=== PATIENT | female | born 1950 | race Caucasian/White ===

== ENCOUNTER 2020-09-09 09:56 | Emergency (ER) | payer MEDICARE ==
[2020-09-09] MEDS ORDERED: NS IV 1000 ML 1,000 ML ONE (10:13)
[2020-09-09 10:26] LABS: HEMATOCRIT 47 % (35-52); HEMOGLOBIN 15.1 G/DL (11.5-16.0); MEAN CORPUSCULAR HEMOGLOBIN 29 PG (25-34); MEAN CORPUSCULAR HGB CONC 32 G/DL (32-36); MEAN CORPUSCULAR VOLUME 92 FL (80-99); PLATELET COUNT 296 10^3/uL (130-400); WHITE BLOOD COUNT 16.1 10^3/uL (4.3-11.0)
[2020-09-09 10:27] LABS: BASOPHILS % (AUTO) 0 % (0-10); EOSINOPHILS % (AUTO) 0 % (0-10); LYMPHOCYTES # (AUTO) 1.8 X 10^3 (1.0-4.0); LYMPHOCYTES % (AUTO) 11 % (12-44); MEAN PLATELET VOLUME 12.1 FL (7.4-10.4); MONOCYTES # (AUTO) 0.9 X 10^3 (0.0-1.0); MONOCYTES % (AUTO) 5 % (0-12); NEUTROPHILS # (AUTO) 13.4 X 10^3 (1.8-7.8); NEUTROPHILS % (AUTO) 83 % (42-75)
[2020-09-09 10:35] LABS: INR 0.9 (0.8-1.4); PROTHROMBIN TIME PATIENT 12.6 SEC (12.2-14.7)
[2020-09-09 10:42] LABS: ALANINE AMINOTRANSFERASE 18 U/L (0-55); ALKALINE PHOSPHATASE 99 U/L (40-136); BILIRUBIN,TOTAL 0.3 MG/DL (0.1-1.0); BUN/CREATININE RATIO 16; CALCIUM 9.4 MG/DL (8.5-10.1); CARBON DIOXIDE 24 MMOL/L (21-32); CHLORIDE 99 MMOL/L (98-107); CREATININE SERUM 0.64 MG/DL (0.60-1.30); GFR ESTIMATED > 60; GLUCOSE 133 MG/DL (70-105); POTASSIUM 4.3 MMOL/L (3.6-5.0); SODIUM 137 MMOL/L (135-145); TOTAL PROTEIN 7.4 GM/DL (6.4-8.2)
[2020-09-09 10:43] LABS: ALBUMIN 4.6 GM/DL (3.2-4.5); BAND NEUTROPHILS 4 %; BASOPHILS % (MANUAL) 0 %; EOSINOPHILS % (MANUAL) 0 %; LYMPHOCYTES % (MANUAL) 14 %; MONOCYTES % (MANUAL) 3 %; NEUTROPHILS % (MANUAL) 79 %
--- NOTE | 2020-09-09 10:45 | NUR ---
10:20: Patient given 5 mg versed, 60 mg rocuronium. 10:43: Patient intubated with a 7.[address] Viveros, 25 cm at lip. Equal breath sounds bilaterally, positive color change on ETCO2 detector.
[2020-09-09] MEDS ORDERED: fentaNYL INJECTION 100 MCG/2 ML AMP ONE (10:53)
[2020-09-09] MEDS ORDERED: fentaNYL INJECTION 100 MCG/2 ML AMP IVP STA (11:03)
[2020-09-09] MEDS ORDERED: MIDAZOLAM 5 MG/5 ML (VERSED) VIAL IVP STA (11:03)
--- NOTE | 2020-09-09 11:06 | ED General ---
General Source of Information: EMS, Spouse Exam Limitations: Physical Impairments (pt unresponsive) History of Present Illness Date Seen by Provider: Sep 09, 2020 Time Seen by Provider: 09:56 Initial Comments 70-year-old female brought in by EMS after being found unresponsive by her this morning. She was last known normal at 2300 last night when he went to bed. She was sitting up in a chair and had some blood coming out of her mouth this morning. She was unresponsive even to painful stimuli. she has no past medical problems was then reflux according to her . She has been healthy and was not having any complaints yesterday. She has no fever or chills. She had not been coughing or having any respiratory problems. She was not complaining of any headache or vision changes. She had no chest pains. When he woke up this am she was sitting in chair and was unresponsive and he could not get her to wake up for him. That is when he had called EMS. Allergies and Home Medications Allergies Coded Allergies: shrimp (Verified Allergy, Unknown, 09/09/20) Patient Home Medication List Home Medication List Reviewed: Yes Review of Systems Review of Systems Constitutional: see HPI; No chills, No fever EENTM: No nose congestion Respiratory: No cough, No short of breath unable to obtain full review of systems due to patient being unresponsive Past Lbwcxhp-Qebjxa-Dnjqhk Hx Past Med/Social Hx: Reviewed Nursing Past Med/Soc Hx Past Medical History Respiratory: No Cardiac: No Neurological: No Reproductive Disorders: No Genitourinary: No Gastrointestinal: Yes Gastroesophageal Reflux Musculoskeletal: No HEENT: Yes Glaucoma Physical Exam Vital Signs Vital Signs - First Documented 09/09/20 10:00 Temp 36.2 Pulse 62 Resp 20 B/P (MAP) 176/85 (115) Pulse Ox 95 O2 Delivery Non Rebreather Capillary Refill : Height, Weight, BMI Height: '" Weight: lbs. oz. kg; BMI Method: General Appearance: Obese, Other (unresponsive) HEENT: Other (pupils 2 mm equal bilaterally with minimal responsiveness to light. blood and mucus in mouth) Neck: Supple Respiratory: Chest Non Tender, Rales, Rhonci; No Stridor Cardiovascular: Normal Peripheral Pulses, Tachycardia Gastrointestinal: No Pulsatile Mass, Soft Extremity: Normal Capillary Refill, No Pedal Edema Neurologic/Psychiatric: No Alert, No Oriented x3; Other (patient moaning at times but not responding to painful stimuli and not opening her eyes on her own. she is moving her extremities on her own) Skin: Warm/Dry Focused Exam Lactate Level 09/09/20 10:05: Lactic Acid Level 2.88*H 09/09/20 12:10: Lactic Acid Level 2.64*H Lactic Acid Level Laboratory Tests Test 09/09/20 12:10 Lactic Acid Level 2.64 MMOL/L (0.50-2.00) *H Procedures/Interventions Reason for Intubation: protect airway Date of ETT Placement: Sep 09, 2020 Time of ETT Placement: 10:43 Intubation Method: orotracheal Tube Size: 7 Medications: Rocuronium, Versed Positive End Tide CO2: Yes Breath Sounds after Intubation: bilateral-equal Intubation Complications: oral-unsuccessful attempt, O2 saturation decreased Post Intubation Xray: Yes ETT above ritchie on first attempt at orotracheal intubation the cords were not visualized and an attempt was made. There were noted breath sounds and no color change noted on the CO2 detector. This tube was removed. Then trying to use the glidescope a 2nd attempt was made but still unable to visualize cords so the orotracheal method was attempted again without success. a 3rd attempt was made with Jaziel vision scope and this was successful in visualizing vocal cords and passing a 7-0 ETT through the cords and getting good color change on ETCO2 detector as well as equal breath sounds. on CXR the tip of ETT was above ritchie. Progress/Results/Core Measures Suspected Sepsis SIRS Temperature: Pulse: Respiratory Rate: Laboratory Tests 09/09/20 10:05: White Blood Count 16.1H Blood Pressure / Mean: 09/09/20 10:05: Lactic Acid Level 2.88*H 09/09/20 12:10: Lactic Acid Level 2.64*H Laboratory Tests 09/09/20 10:05: Creatinine 0.64, INR Comment 0.9, Platelet Count 296, Total Bilirubin 0.3 Results/Orders Lab Results Laboratory Tests Test 09/09/20 10:05 09/09/20 11:10 09/09/20 11:25 09/09/20 12:10 Range/Units White Blood Count 16.1 H 4.3-11.0 10^3/uL Red Blood Count 5.14 4.35-5.85 10^6/uL Hemoglobin 15.1 11.5-16.0 G/DL Hematocrit 47 35-52 % Mean Corpuscular Volume 92 80-99 FL Mean Corpuscular Hemoglobin 29 25-34 PG Mean Corpuscular Hemoglobin Concent 32 32-36 G/DL Red Cell Distribution Width 16.5 H 10.0-14.5 % Platelet Count 296 130-400 10^3/uL Mean Platelet Volume 12.1 H 7.4-10.4 FL Immature Granulocyte % (Auto) 0 % Neutrophils (%) (Auto) 83 H 42-75 % Lymphocytes (%) (Auto) 11 L 12-44 % Monocytes (%) (Auto) 5 0-12 % Eosinophils (%) (Auto) 0 0-10 % Basophils (%) (Auto) 0 0-10 % Neutrophils # (Auto) 13.4 H 1.8-7.8 X 10^3 Lymphocytes # (Auto) 1.8 1.0-4.0 X 10^3 Monocytes # (Auto) 0.9 0.0-1.0 X 10^3 Eosinophils # (Auto) 0.0 0.0-0.3 10^3/uL Basophils # (Auto) 0.0 0.0-0.1 10^3/uL Immature Granulocyte # (Auto) 0.1 0.0-0.1 10^3/uL Neutrophils % (Manual) 79 % Lymphocytes % (Manual) 14 % Monocytes % (Manual) 3 % Eosinophils % (Manual) 0 % Basophils % (Manual) 0 % Band Neutrophils 4 % Prothrombin Time 12.6 12.2-14.7 SEC INR Comment 0.9 0.8-1.4 Activated Partial Thromboplast Time 23 L 24-35 SEC Sodium Level 137 135-145 MMOL/L Potassium Level 4.3 3.6-5.0 MMOL/L Chloride Level 99 98-107 MMOL/L Carbon Dioxide Level 24 21-32 MMOL/L Anion Gap 14 5-14 MMOL/L Blood Urea Nitrogen 10 7-18 MG/DL Creatinine 0.64 0.60-1.30 MG/DL Estimat Glomerular Filtration Rate > 60 BUN/Creatinine Ratio 16 Glucose Level 133 H 70-105 MG/DL Lactic Acid Level 2.88 *H 2.64 *H 0.50-2.00 MMOL/L Calcium Level 9.4 8.5-10.1 MG/DL Corrected Calcium 8.5-10.1 MG/DL Total Bilirubin 0.3 0.1-1.0 MG/DL Aspartate Amino Transf (AST/SGOT) 19 5-34 U/L Alanine Aminotransferase (ALT/SGPT) 18 0-55 U/L Alkaline Phosphatase 99 40-136 U/L Troponin I < 0.30 <0.30 NG/ML Total Protein 7.4 6.4-8.2 GM/DL Albumin 4.6 H 3.2-4.5 GM/DL Triglycerides Level 286 H <150 MG/DL Blood Gas Puncture Site RT RADIAL Blood Gas Patient Temperature 36 Arterial Blood pH 7.19 *L 7.37-7.43 Arterial Blood Partial Pressure CO2 74 *H 35-45 MMHG Arterial Blood Partial Pressure O2 91 79-93 MMHG Arterial Blood HCO3 28 H 23-27 MMOL/L Arterial Blood Total CO2 30.6 21.0-31.0 MMOL/L Arterial Blood Oxygen Saturation 95 94-100 % Arterial Blood Base Excess -1.5 -2.5-2.5 MMOL/L Wally Test OK Blood Gas Ventilator Setting YES Blood Gas Inspired Oxygen 100% Urine Color YELLOW Urine Clarity CLEAR Urine pH 7.0 5-9 Urine Specific [place] 1.025 H 1.016-1.022 Urine Protein 2+ H NEGATIVE Urine Glucose (UA) TRACE H NEGATIVE Urine Ketones TRACE H NEGATIVE Urine Nitrite NEGATIVE NEGATIVE Urine Bilirubin NEGATIVE NEGATIVE Urine Urobilinogen 0.2 < = 1.0 MG/DL Urine Leukocyte Esterase NEGATIVE NEGATIVE Urine RBC (Auto) TRACE H NEGATIVE Urine RBC RARE /HPF Urine WBC 0-2 /HPF Urine Squamous Epithelial Cells RARE /HPF Urine Crystals NONE /LPF Urine Bacteria NEGATIVE /HPF Urine Casts NONE /LPF Urine Mucus NEGATIVE /LPF Urine Culture Indicated NO My Orders Orders - DAWN WHELAN MD Chest 1 View Ap/Pa Only (09/09/20 10:15) Ns Iv 1000 Ml (Sodium Chloride 0.9%) (09/09/20 10:13) Cbc With Automated Diff (09/09/20 10:16) Protime With Inr (09/09/20 10:16) Partial Thromboplastin Time (09/09/20 10:16) Comprehensive Metabolic Panel (09/09/20 10:16) Troponin I Fs (09/09/20 10:16) Ua Culture If Indicated (09/09/20 10:16) Ekg Tracing (09/09/20 10:16) Accucheck Stat ONCE (09/09/20 10:16) Ed Iv/Invasive Line Start (09/09/20 10:16) Vital Signs Stroke Patient Q15M (09/09/20 10:16) Ct Head Wo-R/O Stroke (09/09/20 10:16) O2 (09/09/20 10:16) Intake & Output 06,14,22 (09/09/20 10:16) Monitor-Rhythm Ecg Trace Only (09/09/20 10:16) Dysphagia Screening Tool (09/09/20 10:16) Gallegos Cath (09/09/20 10:16) Intubation (09/09/20 10:16) Manual Differential (09/09/20 10:05) Fentanyl Injection (Sublimaze Injection (09/09/20 10:53) Lactic Acid Analyzer (09/09/20 11:00) Og Tube Insertion (09/09/20 11:00) Arterial Blood Gas (09/09/20 11:01) Ventilator Settings Order (09/09/20 11:01) Fentanyl Injection (Sublimaze Injection (09/09/20 11:03) Midazolam Injection (Versed Injection) (09/09/20 11:03) Rocuronium 5 Ml Syringe (Rocuronium 5 Ml (09/09/20 11:31) Rocuronium 5 Ml Syringe (Rocuronium 5 Ml (09/09/20 11:45) Propofol Drip (Icu) (Diprivan Drip (Icu) (09/09/20 12:00) Sedation Communication Q48H (09/09/20 11:57) Triglycerides (09/09/20 11:57) Medications Given in ED Current Medications Medications Dose Ordered Sig/Deidre Route Start Time Stop Time Status Last Admin Dose Admin Rocuronium [place] 50 mg ONCE ONCE IV 09/09/20 11:45 09/09/20 11:46 DC 09/09/20 11:35 50 MG Sodium Chloride 1,000 ml @ STK-MED ONCE .ROUTE 09/09/20 10:13 09/09/20 10:16 DC 09/09/20 11:37 1,000 MLS/HR Vital Signs/I&O 09/09/20 09/09/20 10:00 12:11 Temp 36.2 Pulse 62 108 Resp 20 B/P (MAP) 176/85 (115) 133/85 Pulse Ox 95 O2 Delivery Non Rebreather Capillary Refill : Progress Note #1: Progress Note on arrival to the emergency department with patient being unresponsive and GCS of 3 and was felt that she needed endotracheal tube to secure her airway prior to further testing and treatment. Labs were sent by nursing staff while preparing supplies for the endotracheal intubation. She had a difficult ET intubation and took [address] ETT through visualized vocal cords. She had no acute ST elevation on ECG but did have some artifact. Her CXR after intubation showed ETT with tip just above the ritchie. Progress Note #2: Time: 11:[address] head shows bleeding with extension into the ventricles. Dr. Steven with Radiology called at 1121 with report that she had bilateral Thalamic hemorrhages with extension into ventricles. 1130 I spoke with CHIVO Morrison, at Stroke line for consult regarding neurologic findings. She took the information on the patient and the findings and advised me that the hospital was full at the moment but they will call me back as soon as they can. advised nursing staff he was ok with going to [facility], [facility] or where ever they could take care of the patient. Progress Note #3: Time: 11:54 Progress Note labs show elevated WBC to 16.1 with left shift. Chemistry has no acute significant abnormality other than mild elevation of glucose to 133. Lactic acid elevated to 2.88. UA does not show signs of infection as she has no LE, Nit or bacteria to go with definite UTI. ABG shows she is acidotic with hypercarbia. pH 7.19, pCO2 79, pO2 91. Call placed to [facility] in [place] but they were on diversion for ICU and intubated patients. 1156 call placed to CHIVO Phillips, at [facility] about possible transfer to [facility]. She took the info but stated if there is a chance of pt needing a coil she would have to go to [facility] and they are on diversion. I did not feel she needed a coil as it did not appear she had an aneurysm and none reported from Radiology. Progress Note #4: Time: 12:09 Progress Note CHIVO Morrison, from [facility] center and Stroke consult called back and stated the Dr. Ventura with Neurosurgery had reviewed the images and felt that patient had low chance for surviving this event. They were still looking to see if they had any Neuro-Critical Care beds and will call back. 1240 Dr. Love with Neuro-Critical Care had told CHIVO Morrison, at the transfer center at that they did not have any critical care beds for ICU patient currently. 1254 Dr. Liz with [facility] transfer center and [facility] enter called back with CHIVO Phillips, and took information on pt and accepted for [facility]. Will place in ICU bed and plan to get Rapid Covid on arrival to the hospital. wanted to keep bp under 140 systolic. She has been stable on her blood pressure since sedation for intubation. She did receive Propofol drip to help maintain sedation while intubated. ECG Initial ECG Impression Date: Sep 09, 2020 Initial ECG Impression Time: 10:00 Initial ECG Rate: 82 Initial ECG Rhythm: Normal Sinus Initial ECG Comparisson: No Previous ECG Available Comment sinus arrhythmia with premature ventricular complexes. There is artifact on the tracing. Heart rate is 82 bpm. WI interval 229 ms. QT interval 389 ms with a QTc interval 455 ms. There is no acute ST elevation. There is no prior tracing available for comparison. Diagnostic Imaging Diagonstic Imaging: CT Plain Films/CT/US/NM/MRI: head Comments NAME: AMMY CHRISTIANSON MED REC#: [id number] PT STATUS: REG ER : 1950 PHYSICIAN: DAWN WHELAN MD ADMIT DATE: 09/09/20/ER FS Signed Date of Exam:09/09/20 CT HEAD WO-R/O STROKE PROCEDURE: CT head wo r/o stroke. TECHNIQUE: Multiple contiguous axial images were obtained through the brain without the use of intravenous contrast. Auto Exposure Controls were utilized during the CT exam to meet ALARA standards for radiation dose reduction. INDICATION: Patient was found unresponsive, last normal at 2300 hours last night. COMPARISON STUDY: None FINDINGS: There is a 22 x 16 mm area of hemorrhage in the right side of thalamus. There is a 16 x 18 mm area of hemorrhage in the left side of the thalamus. This appears to have erupted into the middle ventricle with hemorrhage throughout the lateral, middle and 4th ventricles. No other areas of hemorrhage are identified. There is no atrophy. The temporal horns are mildly enlarged. IMPRESSION: There are bilateral thalamic hemorrhages with eruption into the ventricular system. The temporal horns are mildly enlarged. Findings were called to Dr. Whelan. Dictated by: Dictated on workstation # [id number] Dict: 09/09/20 1121 Trans: 09/09/20 1150 CVB [id number] Interpreted by: LV STEVEN MD Electronically signed by: LV STEVEN MD 09/09/20 1150 Diagonstic Imaging: Xray Plain Films/CT/US/NM/MRI: chest Comments [facility] [place] NAME: AMMY CHRISTIANSON [facility] REC#: [id number] PT STATUS: REG ER : 1950 PHYSICIAN: DAWN WHELAN MD ADMIT DATE: 09/09/20/ER FS Signed Date of Exam:09/09/20 CHEST 1 VIEW AP/PA ONLY INDICATION: Patient found unresponsive, intubated and nasogastric tube placement. FINDINGS: AP view of the chest demonstrates an endotracheal tube with its tip within 1 cm of the ritchie. No enteric tube is identified. The lungs are clear. The heart size upper normal. IMPRESSION: The endotracheal tube is just above the ritchie. Dictated by: Dictated on workstation # [id number] Dict: 09/09/20 1101 Trans: 09/09/20 1111 CVB [id number] Interpreted by: LV STEVEN MD Electronically signed by: LV STEVEN MD 09/09/20 1111 Critical Care Note Critical Care Total Time (minutes) 75 minutes Progress 75 minutes of total time in direct care of the patient was spent. time was spent obtaining history from family and EMS, ordering tests and reviewing results, ordering interventions and reviewing response, discussion with consultants, documentation in the chart. Time was excluding separately billable procedures. Patient was at risk of imminent compromise of her neurologic, cardiac, respira tory system. Departure Impression Primary Impression: Thalamic hemorrhage with stroke Additional Impression: Hemorrhage into ventricle Disposition: XFER SHT-TRM HOSP Condition: Critical Transfer Transfer Reason: Exceeds level of care Time Spoke to Accepting Phy: 12:54 Transfer Progress Notes d/w Dr. Liz and will accept to [facility]. Will see about ICU bed and call back with room assignment. In meantime keep pt BP under 140 systolic and continue with supportive care. Transfer Facility: [facility] Method of Transfer: EMS Departure-Patient Inst. Referrals: JOSE DAVID BAIRES MD (PCP/Family) Primary Care Physician DAWN WHELAN MD Sep 09, 2020 11:06
[2020-09-09 11:19] LABS: ABG PH 7.19 (7.37-7.43)
[2020-09-09 11:21] LABS: ABG BASE EXCESS -1.5 MMOL/L (-2.5-2.5); ABG OXYGEN SATURATION 95 % (94-100); ABG PCO2 74 MMHG (35-45); ABG PO2 91 MMHG (79-93); ABG TCO2 30.6 MMOL/L (21.0-31.0); ALLENS TEST OK
[2020-09-09 11:22] LABS: INSPIRED O2 100%; PATIENT TEMP 36; VENTILATOR YES
--- NOTE | 2020-09-09 11:29 | Diagnostic Imaging Report ---
PROCEDURE: CT head wo r/o stroke. TECHNIQUE: Multiple contiguous axial images were obtained through the brain without the use of intravenous contrast. Auto Exposure Controls were utilized during the CT exam to meet ALARA standards for radiation dose reduction. INDICATION: Patient was found unresponsive, last normal at 2300 hours last night. COMPARISON STUDY: None FINDINGS: There is a 22 x 16 mm area of hemorrhage in the right side of thalamus. There is a 16 x 18 mm area of hemorrhage in the left side of the thalamus. This appears to have erupted into the middle ventricle with hemorrhage throughout the lateral, middle and 4th ventricles. No other areas of hemorrhage are identified. There is no atrophy. The temporal horns are mildly enlarged. IMPRESSION: There are bilateral thalamic hemorrhages with eruption into the ventricular system. The temporal horns are mildly enlarged. Findings were called to Dr. Viveros. Dictated by: Dictated on workstation # [id number]
[2020-09-09] MEDS ORDERED: ROCURONIUM 10 MG/ML 5 ML SYRINGE IV ONE ×2 (11:31→11:45)
[2020-09-09 11:37] LABS: CLARITY,URINE CLEAR; COLOR,URINE YELLOW; GLUCOSE, URINE (UA) TRACE (NEGATIVE); PROTEIN,URINE 2+ (NEGATIVE)
[2020-09-09 11:38] LABS: BACTERIA,URINE NEGATIVE /HPF; BILIRUBIN,URINE NEGATIVE (NEGATIVE); KETONES,URINE TRACE (NEGATIVE); LEUKOCYTE ESTERASE ,URINE NEGATIVE (NEGATIVE); NITRITE,URINE NEGATIVE (NEGATIVE); RBC,URINE RARE /HPF; SQUAMOUS EPITHELIAL CELL,UR RARE /HPF; WBC,URINE 0-2 /HPF
[2020-09-09] MEDS ORDERED: PROPOFOL DRIP (ICU) 100 ML IV SCH (12:00)
--- NOTE | 2020-09-09 13:40 | NUR ---
Call received from [facility], room number given for [facility] ICU. at bedside updated. EMS called for transport.
[2020-09-09 14:20] VITALS: BP 117/77
== END 2020-09-09 14:20 | disposition short-term general hospital (02) ==
LOC: ER FS 09:58
DX: I61.9 Nontraumatic intracerebral hemorrhage, unspecified (principal); I61.5 Nontraumatic intracerebral hemorrhage, intraventricular; E66.9 Obesity, unspecified
CPT/HCPCS: 31500; 36415; 51702; 70450; 71045; 80053; 81000; 82805; 83605; 84478; 84484; 85007; 85027; 85610; 85730; 93005; 93041; 99291